=== PATIENT | female | born 1950 | race Caucasian/White ===

== ENCOUNTER → 2017-06-25 | Outpatient (CLI) | payer OTHER ==
--- NOTE | 2017-06-26 15:58 | MAMMOGRAPHY REPORT ---
BILATERAL DIGITAL SCREENING MAMMOGRAM WITH CAD: 06/25/2017 CLINICAL HISTORY: Routine screening. Patient has no complaints. TECHNIQUE: Bilateral CC and MLO views were obtained. Current study was also evaluated with a Compute r Aided Detection (CAD) system. COMPARISON: Comparison is made to exams dated: 06/20/2016 mammogram - [facility], mammogram, 11/27/2013 mammogram, and 08/22/2012 mammogram. BREAST COMPOSITION: The tissue of both breasts is almost entirely fatty. FINDINGS: The parenchymal pattern is unchanged. No developing mass, architectural distortion or clus ter of suspicious microcalcifications is seen in either breast. IMPRESSION: ACR BI-RADS CATEGORY 2: BENIGN There is no mammographic evidence of malignancy. A 1 year screening mammogram is recommended. The pa tient will receive written notification of the results. Approximately 10% of breast cancers are not detected with mammography. A negative mammographic report should not delay biopsy if a clinically suggestive mass is present. April Savage M.D. ay/:06/25/2017 15:49:45 Line Leader: Marquita Carrera RT(R)(M)(BD), [facility] letter sent: Normal 1/2 BI-RADS Code: ACR BI-RADS Category 2: Benign
== END | disposition home or self-care (01) ==
LOC: C.MAMM 11:27
PROVIDERS: ATTEND Obstetrics & Gynecology
DX: Z12.31 Encounter for screening mammogram for malignant neoplasm of breast (principal)

== ENCOUNTER → 2017-10-25 | Outpatient (CLI) | payer OTHER | END | disposition home or self-care (01) | LOC: C.PAPS 15:35 | PROVIDERS: ATTEND Obstetrics & Gynecology | DX: Z12.4 Encounter for screening for malignant neoplasm of cervix (principal) ==

== ENCOUNTER 2024-09-04 06:31 | Observation (INO) ==
--- NOTE | 2024-08-05 13:28 | PAT Medication Instructions ---
Medication Instructions Date of Service August 05, 2024 Home Medications ascorbic acid (vitamin C) 500 mg tablet (Vitamin C) 500 mg PO QAM aspirin 81 mg tablet,delayed release 81 mg PO QAM cholecalciferol (vitamin D3) 50 mcg (2,000 unit) capsule (Vitamin D3) 2,000 unit PO QAM cyanocobalamin (vitamin B-12) 500 mcg tablet (Vitamin B-12) 500 mcg PO QAM multivitamin 1 tab PO QAM zinc 50 mg tablet 50 mg PO QAM escitalopram oxalate 20 mg tablet (Lexapro) 20 mg PO QAM prevagen 1 cap PO QAM albuterol 90 mcg/actuation aerosol inhaler 90 mcg inhalation HS bupropion HCl 300 mg 24 hr tablet, extended release 300 mg PO QAM docusate sodium 100 mg capsule 100 mg PO QAM ferrous sulfate 140 mg (45 mg iron) tablet,extended release 140 mg PO Q2D loratadine 10 mg tablet 10 mg PO QAM meloxicam 15 mg tablet 15 mg PO DAILY PRN Pain naltrexone 50 mg tablet 50 mg PO QAM rosuvastatin 10 mg tablet 10 mg PO HS Continue as directed naltrexone 50 mg tablet 50 mg PO QAM ASK your surgeon for instructions meloxicam 15 mg tablet 15 mg PO DAILY PRN Pain ASK your prescriber and surgeon aspirin 81 mg tablet,delayed release 81 mg PO QAM STOP taking 2 weeks before surgery (or as soon as possible if surgery is within 2 weeks) prevagen 1 cap PO QAM DO NOT take the morning of surgery ascorbic acid (vitamin C) 500 mg tablet (Vitamin C) 500 mg PO QAM cholecalciferol (vitamin D3) 50 mcg (2,000 unit) capsule (Vitamin D3) 2,000 unit PO QAM cyanocobalamin (vitamin B-12) 500 mcg tablet (Vitamin B-12) 500 mcg PO QAM multivitamin 1 tab PO QAM zinc 50 mg tablet 50 mg PO QAM docusate sodium 100 mg capsule 100 mg PO QAM ferrous sulfate 140 mg (45 mg iron) tablet,extended release 140 mg PO Q2D loratadine 10 mg tablet 10 mg PO QAM Take morning of surgery With a small sip of water, OTHERWISE NOTHING TO EAT OR DRINK AFTER MIDNIGHT: escitalopram oxalate 20 mg tablet (Lexapro) 20 mg PO QAM bupropion HCl 300 mg 24 hr tablet, extended release 300 mg PO QAM Take evening before surgery albuterol 90 mcg/actuation aerosol inhaler 90 mcg inhalation HS rosuvastatin 10 mg tablet 10 mg PO HS Other Notes If you have any questions please call us at [phone] or [phone] or [phone] or [phone]
--- NOTE | 2024-08-17 09:32 | Anesthesiology Consultation ---
Date of Service August 17, 2024 Assessment & Plan (1) Encounter for pre-operative examination: Chart Review Chart Review: Acceptable Risk for Surgery and Patient seen in Pre Admission Testing - Patient hesitant about SAB- will discuss with anesthesiologist DOS - Patient is NOT an ideal OPJ candidate (anxious)- currently 23 hour obs Per PAT appt on 08/17/24, no recent illness/disease exposures, illness related symptoms, or recent illness/disease positive tests. Will leave to surgeon's discretion if preop Covid testing needed History Surgery Operation Date: 09/04/24 09:20 Proposed Procedures p Left Total Knee Arthroplasty - Michael Kahn, Height/Weight Height: 5 ft 8 in Weight: 102.1 kg Allergies Allergy/AdvReac Type Severity Reaction Status Date / Time No Known Allergies Allergy Verified 08/05/24 10:16 Medications Home Medications Medication Instructions Recorded Confirmed Last Taken ascorbic acid (vitamin C) 500 mg 500 mg PO QAM 09/12/18 08/05/24 09/22/18 tablet (Vitamin C) aspirin 81 mg tablet,delayed 81 mg PO QAM 09/12/18 08/05/24 09/22/18 release cholecalciferol (vitamin D3) 50 2,000 unit PO QAM 09/12/18 08/05/24 09/22/18 mcg (2,000 unit) capsule (Vitamin D3) cyanocobalamin (vitamin B-12) 500 500 mcg PO QAM 09/12/18 08/05/24 09/22/18 mcg tablet (Vitamin B-12) multivitamin 1 tab PO QAM 09/12/18 08/05/24 09/22/18 zinc 50 mg tablet 50 mg PO QAM 04/19/21 08/05/24 Unknown escitalopram oxalate 20 mg tablet 20 mg PO QAM 02/20/24 08/05/24 Unknown (Lexapro) prevagen 1 cap PO QAM 02/20/24 08/05/24 Unknown albuterol 90 mcg/actuation aerosol 90 mcg inhalation HS 08/05/24 08/05/24 Unknown inhaler bupropion HCl 300 mg 24 hr tablet, 300 mg PO QAM 08/05/24 08/05/24 Unknown extended release docusate sodium 100 mg capsule 100 mg PO QAM 08/05/24 08/05/24 Unknown ferrous sulfate 140 mg (45 mg 140 mg PO Q2D 08/05/24 08/05/24 Unknown iron) tablet,extended release loratadine 10 mg tablet 10 mg PO QAM 08/05/24 08/05/24 Unknown meloxicam 15 mg tablet 15 mg PO DAILY PRN Pain 08/05/24 08/05/24 Unknown naltrexone 50 mg tablet 50 mg PO QAM 08/05/24 08/05/24 Unknown rosuvastatin 10 mg tablet 10 mg PO HS 08/05/24 08/05/24 Unknown Past Medical History Medical History Anemia Improving per patient - takes iron supplement Anxiety Aspiration into airway - Aspiration of pill around 12/2023- s/p interventional pulmonary procedure 03/16/24 at [facility] [place] (dilation of airway, Kenalog injection as well as cryotherapy) - Treated subsequently with Levaquin - Had repeat pulmonary procedure Jul 2024- breathing has been improved Asthma stable Bronchial stenosis, right Per 03/09/[address] - due to aspiration of pill- had scar tissue - improved with most recent dilation of airway 07/2024- follow up with pulm PRN History of melanoma left foot History of retinal vein occlusion Unsure vein or artery - around 2020- follows Dr Recio (eye doctor) - yearly follow up - completed shots 2021 History of thyroid nodule benign Osteoarthritis Exercise / Class Metabolic Activity II 4-5 Yardwork/Stairs/Walk up hill (one flight of stairs - no chest pain or SOB ) Past Family History Family History Mother Family hx of colon cancer, Onset Age: 64 Denies family history of Ovarian cancer Prostate cancer Myocardial infarction Breast cancer Past Surgical History Surgical History (Updated 08/17/24 @ 12:28 by Beth Colvin PA-C) History of adenoidectomy History of amputation of toe Left Foot - Second toe- due to bunion History of appendectomy History of bronchoscopy - x4 since 12/2023 [facility] [place] "They would freeze it, scrape it away and stretch my airway" related to aspiration - most recent procedure Jul 2024 History of cholecystectomy History of colonoscopy (2022) History of dilatation and curettage History of gastric bypass History of melanoma excision left foot History of partial thyroidectomy History of tonsillectomy History of tooth extraction History of total hip arthroplasty right History of vein stripping Past Anesthesia History No Hx of Anesthesia Complications and No Family Hx of Anesthesia Complications History of PONV No Hx of PONV and No Hx of Motion Sickness Social History Smoking Status: Former smoker Do You Dip or Chew Tobacco: No Smoking End Date: around 1989 Hx Alcohol Use: Yes Alcohol type: hard liquor alcohol intake frequency: holidays/special occasions only Hx Substance Use: No substance use type: does not use Review of Systems - Occ cough/wheezing- due to asthma -chronic and stable - Hx of blood transfusion with hip surgery - early Patient denies chest pain, shortness of breath, dyspnea on exertion, reflux, palpitations. No hx of seizures, stroke, CO, apnea/snoring. No hx of blood clots Physical Exam Vital Signs VITALS BP 121/69 P 58 TEMP 98.2 SP02 96% RESP 16 Constitutional no acute distress ENMT Mouth: no TMJ clicking Thyromental Distance: < 3.5 Finger Breadths (3.0) Mallampati Class: III Missing molars Cap to side tooth Neck neck extension not limited Respiratory normal respiratory effort; no respiratory distress Auscultation: lungs clear to auscultation bilaterally; no wheezes Cardiovascular Rate/Rhythm: regular rate and regular rhythm Heart Sounds: no murmur Vessels: no carotid bruit Musculoskeletal Spine: no pain with cervical ROM Extremities: extremities normal to inspection Psychiatric Orientation: alert Lab Results Anesthesia Preop Results Results Anesthesia Widget: WBC 5.98 K/ul (4.8-10.8) 08/17/24 Hgb 13.1 g/dl (12.0-16.0) 08/17/24 Hct 40.7 % (37.0-47.0) 08/17/24 Plt 307 K/uL (130-400) 08/17/24 Na 141 mmol/L (136-145) 08/17/24 K 4.2 mmol/L (3.5-5.1) 08/17/24 Cl 108 mmol/L (98-107) H 08/17/24 CO2 28 mmol/L (21-32) 08/17/24 BUN 13 mg/dl (6-23) 08/17/24 Creat 0.62 mg/dl (0.6-1.2) 08/17/24 Glucose Level 94 mg/dl (70-99(Fasting)) 08/17/24 PT 10.6 Seconds (9.0-12.0) 08/17/24 PTT 27 Seconds (21-31) 08/17/24 INR 1.0 (0.9-1.1) 08/17/24 Blood Type A Positive 08/17/24 Antibody Screen NEGATIVE 08/17/24 Testing Electrocardiogram Date: 08/17/24 Findings: + SB @ (57bpm) Otherwise normal EKG per cardio Chest X-Ray Date: 08/17/24 FINDINGS: PA and lateral chest radiographs are compared to study dated 12/30/2023 and correlated with chest CT dated 03/09/2024. The cardiomediastinal silhouette is unremarkable. There is mild bibasilar scarring/atelectasis. The lungs and pleural spaces are otherwise clear. There is no pneumothorax. The skeletal structures are osteopenic. The bony thorax appears intact. Degenerative change is noted in the spine. Suture material and surgical clips project over the left upper quadrant. IMPRESSION: No active disease in the chest.
--- NOTE | 2024-09-03 06:43 | History & Physical Report ---
Date of Service September 03, 2024 Assessment & Plan (1) Osteoarthritis, knee: We will proceed with a left total knee arthroplasty. Postoperatively she will be started on aspirin for DVT prophylaxis and kept overnight in the hospital for postop medical management. She plans to have the hospital set up home health for discharge. History of Present Illness Chief Complaint: Osteoarthritis of the left knee. Primary Care Provider: Paulina CarmenJay Mathieu Funk is a pleasant 74-year-old female who has been dealing with chronic increasing left knee pain. She has been seeing my partner, Dr. Nieto. X- rays and clinical examination have been diagnostic for advanced arthritis of the left knee. He has been given her multiple injections. Unfortunately, she is still really struggling with the left knee. After failing conservative treatment, she has elected proceed with a left total knee arthroplasty. Allergies Allergy/AdvReac Type Severity Reaction Status Date / Time No Known Allergies Allergy Verified 08/05/24 10:16 Home Medications Medication Instructions Recorded Confirmed Type ascorbic acid (vitamin C) 500 mg 500 mg PO QAM 09/12/18 08/05/24 History tablet (Vitamin C) aspirin 81 mg tablet,delayed 81 mg PO QAM 09/12/18 08/05/24 History release cholecalciferol (vitamin D3) 50 2,000 unit PO QAM 09/12/18 08/05/24 History mcg (2,000 unit) capsule (Vitamin D3) cyanocobalamin (vitamin B-12) 500 500 mcg PO QAM 09/12/18 08/05/24 History mcg tablet (Vitamin B-12) multivitamin 1 tab PO QAM 09/12/18 08/05/24 History zinc 50 mg tablet 50 mg PO QAM 04/19/21 08/05/24 History escitalopram oxalate 20 mg tablet 20 mg PO QAM 02/20/24 08/05/24 History (Lexapro) prevagen 1 cap PO QAM 02/20/24 08/05/24 History albuterol 90 mcg/actuation aerosol 90 mcg inhalation HS 08/05/24 08/05/24 History inhaler bupropion HCl 300 mg 24 hr tablet, 300 mg PO QAM 08/05/24 08/05/24 History extended release docusate sodium 100 mg capsule 100 mg PO QAM 08/05/24 08/05/24 History ferrous sulfate 140 mg (45 mg 140 mg PO Q2D 08/05/24 08/05/24 History iron) tablet,extended release loratadine 10 mg tablet 10 mg PO QAM 08/05/24 08/05/24 History meloxicam 15 mg tablet 15 mg PO DAILY PRN Pain 08/05/24 08/05/24 History naltrexone 50 mg tablet 50 mg PO QAM 08/05/24 08/05/24 History rosuvastatin 10 mg tablet 10 mg PO HS 08/05/24 08/05/24 History Past Med/Surg History Problem List Aspiration into airway 12/2023 Osteoarthritis, knee Encounter for pre-operative examination Medical History History of retinal vein occlusion Unsure vein or artery - around 2020- follows Dr Recoi (eye doctor) - yearly follow up - completed shots 2021 Asthma stable Aspiration into airway - Aspiration of pill around 12/2023- s/p interventional pulmonary procedure 03/16/24 at [facility] [place] (dilation of airway, Kenalog injection as well as cryotherapy) - Treated subsequently with Levaquin - Had repeat pulmonary procedure Jul 2024- breathing has been improved Bronchial stenosis, right Per 03/09/[address] - due to aspiration of pill- had scar tissue - improved with most recent dilation of airway 07/2024- follow up with pulm PRN Osteoarthritis History of thyroid nodule benign History of melanoma left foot Anemia Improving per patient - takes iron supplement Anxiety Surgical History History of amputation of toe Left Foot - Second toe- due to bunion History of bronchoscopy - x4 since 12/2023 [facility] [place] "They would freeze it, scrape it away and stretch my airway" related to aspiration - most recent procedure Jul 2024 History of colonoscopy (2022) History of vein stripping History of tooth extraction History of tonsillectomy History of adenoidectomy History of gastric bypass History of appendectomy History of cholecystectomy History of dilatation and curettage History of total hip arthroplasty right History of partial thyroidectomy History of melanoma excision left foot Family History Mother Family hx of colon cancer, Onset Age: 64 Denies family history of Ovarian cancer Prostate cancer Myocardial infarction Breast cancer Social History Smoking Status: Former smoker Tobacco Type: Cigarettes Smoking End Date: around 1989; Second Hand Exposure: No; Do You Dip or Chew Tobacco: No; Tobacco Cessation Education Requested by Patient: No Hx Alcohol Use: Yes Alcohol type: hard liquor Hx Substance Use: No Preferred Language: Sami Communication Ability: Effective Heel Slicker Required: No Beliefs That Will Affect Care: None Current Living Situation: Spouse Other Information That Helps Us Care for You: No Feels Safe at Home: Yes Safety Concerns: Feels Safe At This Time Assistive Devices: Glasses Review of Systems All systems reviewed & are unremarkable except as noted in HPI & below. Physical Exam On physical exam of the left knee, she has a valgus deformity. She has tenderness palpation of the distal lateral femoral condyle and over the lateral joint line.. Constitutional WD/WN, vitals as above Eyes PERRL, conjunctivae normal, anicteric sclerae ENMT external ear and nose normal, oropharynx normal Neck trachea midline, no thyromegaly Respiratory normal respiratory effort Cardiovascular RRR, no murmur, no edema Gastrointestinal (Abdomen) normal bowel sounds, soft, nontender, no hepatosplenomegaly Psychiatric A+Ox3, euthymic affect Results & Data Results & Data Laboratory Results . Diagnostic Findings X-rays of the left knee show advanced osteoarthritis with joint space narrowing, osteophyte formation, and [id number] articulation. PG Care Time/CCT Total # of Minutes Spent Total Time Spent with Patient: Total time spent is greater than 50% in coordination of care (as documented) at patient's floor/unit and/or counseling patient: Coding Level of Care Code None Diagnoses Osteoarthritis, knee M17.10
[~2024-09-04 06:31] MED LIST: BUPIVACAINE 0.25% PF 30 ML VIAL ONE; BUPIVACAINE 0.5 % 5 MG/1 ML PF 10ML VIAL ONE
[2024-09-04] MEDS ORDERED: MIDAZOLAM HCL 1 MG/ML 2ML VIAL ONE ×2 (06:40→07:25)
[2024-09-04] MEDS ORDERED: fentaNYL citrate PF 100 MCG/2 ML VIAL ONE (06:41)
[2024-09-04] MEDS ORDERED: LIDOCAINE 2% 2 ML VIAL/AMP(20MG/ML) INFIL ONE ×3 (06:44→08:39)
[2024-09-04] MEDS ORDERED: PROPOFOL IV EMULSION 10 MG/ML 20 ML VIAL IV ONE ×6 (06:47→08:29)
--- NOTE | 2024-09-04 06:49 | History & Physical Bridge Note ---
Date of Service September 04, 2024 History & Physical Bridge Note I have examined the patient, reviewed the History & Physical and in the interval since the performance of the History & Physical I have noted the following changes of clinical significance: no changes noted
[2024-09-04] MEDS ORDERED: ATROPINE SULFATE 0.1 MG/ML 10ML SYR IV PRN (07:39)
[2024-09-04] MEDS ORDERED: fentaNYL citrate PF 100 MCG/2 ML VIAL IV PRN (07:39)
[2024-09-04] MEDS ORDERED: ePHEDrine sulfate 50 MG/ML AMP IV PRN (07:39)
[2024-09-04] MEDS ORDERED: ONDANSETRON INJ 2 MG/ML 2 ML VIAL IV PRN ×2 (07:39→09:55)
[2024-09-04] MEDS: LR 500ML BOLUS, THEN 15ML/HR IV SCH (07:41)
[2024-09-04] MEDS: FAMOTIDINE 20 MG TAB PO SCH (07:42)
[2024-09-04] MEDS: ACETAMINOPHEN 500 MG TAB PO SCH (07:42)
[2024-09-04] MEDS: GABAPENTIN 300 MG CAP PO SCH (07:42)
[2024-09-04] MEDS: dexAMETHasone**PF** 10 MG/ML VIAL IV SCH (07:42)
[2024-09-04] MEDS: TRANEXAMIC ACID 1,000 MG **IV Pre-op IV SCH (07:47)
[2024-09-04] MEDS: ceFAZolin 2000MG 2,000 MG/15 ML SYR IV SCH ×2 (08:06→15:33)
[2024-09-04] MEDS ORDERED: KETAMINE HCL 10MG/ML SYR ONE (08:24)
[2024-09-04] MEDS ORDERED: ePHEDrine sulfate 50 MG/5 ML SYR ONE (08:31)
[2024-09-04] MEDS ORDERED: PHENYLEPHRINE 100MCG/ML 5ML SYR ONE (08:47)
[2024-09-04] MEDS: ROPIV 0.5% 246mg, Ketorolac 30mg, EPINEPHrine 0.5mg in NSS INFIL SCH (08:57)
[2024-09-04] MEDS: ORTHO JOINT ANESTHETIC ONE (08:58)
--- NOTE | 2024-09-04 09:21 | Operative Report ---
PG Post Operative Report Pre & Post Diagnosis Operation Date: 09/04/24 08:00 Pre-Op Diagnosis: Osteoarthritis, Left Knee Post-Op Diagnosis: Osteoarthritis, Left Knee I identified the patient and participated in the time-out.: Yes Procedure Operation Date: 09/04/24 08:00 Actual Procedures p Left Total Knee Arthroplasty(Left) - Michael Kahn DO Surgeon Michael Kahn DO Wood Type Finisher Barbara White PA-C Estimated Blood Loss 30 Findings Consistent with Post-Op Diagnosis Specimens Left femoral and tibial bone Description of Procedure Implants used: I used a Charis Persona total knee arthroplasty system with a size 7 standard PS femur, E tibia, 31 oval patella, and a size 14 CPS polyethylene bearing. All components were cemented in place with Biomet cement. [facility] arrived [facility] for the above procedure. She was seen in the preoperative holding area and the operative extremity was identified and signed. She was given a preoperative antibiotic, TXA, a spinal anesthetic and an adductor nerve block. She was taken back to the operating room and laid on the table in supine position. She was given basic sedation. The operative knee was then prepped and draped in sterile fashion. A timeout was done, and the patient and the operative extremity was properly identified. A midline incision was made directly over the patella. Dissection was taken down to the extensor mechanism. A subvastus arthrotomy was used. The medial retinaculum was released and the fat pad was mostly excised. The knee was flexed and the ACL, PCL, and meniscus were removed. A drill was sent down the center of the femoral canal followed by an intramedullary jaydon. Off that jaydon a distal femoral cutting block was placed. 9 mm was resected off the distal femur at 5 of valgus. A posterior referencing AP sizing guide was then placed on the distal femur. The femur measured to be a size 7. 2 drill holes were placed in 3 of external rotation. A 4-in-1 cutting block was then impacted into place. Anterior, posterior, and chamfer cuts were then made. The proximal tibia was then exposed. An external tibial alignment guide was placed. A tibial cut guide was then anchored in place and the proximal tibia was then resected. The posterior aspect of the knee was then opened up and any additional meniscus fragments and osteophytes were removed. The tibia measured to be a size E. The tibial plate was then placed in the appropriate rotation and the tibia was drilled and punched. Trial components were then placed. I used a size 14 CPS polyethylene insert. The knee was brought through a full range of motion and felt to be stable. The peg holes for the femoral component were then drilled. The patella was then everted and 9 mm was resected off the posterior aspect of the patella. The patella measured to be a size 31 oval. 3 peg holes were then drilled. A trial patella was placed. The knee was once again brought through a full range of motion and felt to be stable. Trial components were then removed. The surrounding soft tissues were injected with 100 cc of an orthopedic pain control cocktail. All components were then cemented into place with Biomet cement. The final polyethylene insert was then snapped into place. Once cement was dry the tourniquet was deflated. Hemos tasis was obtained. A dilute betadyne lavage was then done for 3 minutes. The joint was then irrigated with normal saline solution. The subvastus arthrotomy was then closed with #1 Vicryl suture. The skin was closed with 2-0 Vicryl, 3- 0V lock suture, and elham. A soft compressive dressing was placed. She was then transferred to a hospital bed and taken to the postanesthesia care unit in stable condition. She tolerated the procedure well. Barbara White PA-C, was present for the entire procedure. He was critical for patient positioning, prepping, draping, retraction exposure, wound closure and application of sterile dressing. I attest to the content of the Intraoperative Record and any orders documented therein. Any exceptions are noted below.
[2024-09-04] MEDS: TRANEXAMIC ACID 1,000 MG **IV Intra-op IV SCH (09:25)
[2024-09-04] MEDS ORDERED: NALOXONE HCL 0.4 MG/1 ML VIAL/CARP IV PRN (09:55)
[2024-09-04] MEDS ORDERED: HYDROmorphone INJ 0.5 MG/0.5 ML SYR IV PRN (09:55)
[2024-09-04] MEDS ORDERED: bisacodyL 10 MG SUPP PR PRN (09:55)
[2024-09-04] MEDS ORDERED: HYDROmorphone INJ 1 MG/ML SYRINGE IV PRN (09:55)
[2024-09-04] MEDS ORDERED: METOCLOPRAMIDE HCL INJ 5 MG/ML 2 ML VIAL IV PRN (09:55)
[2024-09-04] MEDS ORDERED: MAGNESIUM HYDROXIDE SUSP 30 ML UDC PO PRN (09:55)
[2024-09-04] MEDS ORDERED: MELOXICAM 7.5 MG TAB PO PRN (09:58)
[2024-09-04] MEDS: LR 60ML/HR IV SCH (11:16)
--- NOTE | 2024-09-04 11:17 | XRay Report ---
XR knee LT 1 or 2V routine CLINICAL HISTORY: Postoperative evaluation. COMPARISON: Left knee radiographs June 23, 2024. FINDINGS: Alignment of the total left knee arthroplasty is anatomic. There is no periprosthetic frac ture or unexpected radiopaque foreign body. There are skin elham. IMPRESSION: Expected findings following total left knee arthroplasty. ACT 112: Negative or not required by law. Electronically signed by: Michael Izaguirre M.D. 09/04/2024 11:15 AM
[2024-09-04] MEDS: KETOROLAC TROMETHAMINE 15 MG/ML VIAL IV SCH (11:34)
[2024-09-04] MEDS: FERROUS SULFATE 325 MG TAB PO SCH (12:23)
--- NOTE | 2024-09-04 14:02 | Anesthesiology Progress Note ---
Date of Service September 04, 2024 Anesthesia Post Procedure Vital Signs Vital Signs: Temp Pulse Pulse Resp BP BP Pulse Ox 09/04/24 12:27 36.5 C 70 18 139/80 97 09/04/24 11:30 63 18 119/74 94 09/04/24 11:00 36.5 C 64 18 122/76 96 09/04/24 10:40 36.4 C L 63 14 130/69 92 09/04/24 10:30 64 15 125/66 92 09/04/24 10:20 62 15 116/75 94 09/04/24 10:10 61 14 117/72 99 09/04/24 10:00 36.3 C L 66 18 109/68 97 09/04/24 07:08 36.6 C 60 20 143/69 H 97 O2 Del Method O2 Flow Rate 09/04/24 12:27 Room Air 09/04/24 11:30 Room Air 09/04/24 11:00 Room Air 09/04/24 10:40 Room Air 09/04/24 10:30 Room Air 09/04/24 10:20 Room Air 09/04/24 10:10 Room Air 09/04/24 10:00 Oxymask 12 09/04/24 07:08 Room Air Transfer of Care Handoff Completed per policy Notes Mental Status: alert / awake / arousable Patient Amnestic to Procedure: Yes Nausea / Vomiting: adequately controlled Pain: adequately controlled Airway Patency, RR, SpO2: stable & adequate BP & HR: stable & adequate Hydration State: stable & adequate Neuraxial Anesthesia: was administered and sensory block is resolving Anesthetic Complications: no major complications apparent and Pt Satisfied with anesthetic care
[2024-09-04] MEDS: ACETAMINOPHEN 1,000 MG/100 ML VIAL IV PRN (14:22)
[2024-09-04] MEDS: SENNA 8.6 MG TAB PO SCH (20:48)
[2024-09-04] MEDS: ROSUVASTATIN CALCIUM 10 MG TAB PO SCH (20:50)
[2024-09-04] MEDS ORDERED: DOCUSATE SODIUM 100 MG CAP PO SCH (21:00)
[2024-09-04] MEDS: ALBUTEROL HFA 8 GM INHALER INH SCH (22:00)
[2024-09-05] MEDS: diphenhydrAMINE Capsule 25 MG CAP PO PRN (00:13)
[2024-09-05] MEDS: oxyCODONE HCL IR 5 MG TAB (IMMEDIATE RELEASE) PO PRN (08:00)
[2024-09-05] MEDS: dexAMETHasone 4 MG TAB PO SCH (08:00)
[2024-09-05] MEDS: CHOLECALCIFEROL 25 MCG (1000 UNITS) TAB PO SCH (08:01)
[2024-09-05] MEDS: ASPIRIN 81 MG ECTAB PO SCH (08:01)
[2024-09-05] MEDS: buPROPion XL 300 MG TABCR PO SCH (08:01)
[2024-09-05] MEDS: ASCORBIC ACID 500 MG TAB PO SCH (08:01)
[2024-09-05] MEDS: LORATADINE 10 MG TAB PO SCH (08:02)
[2024-09-05] MEDS: ESCITALOPRAM OXALATE 20 MG TAB PO SCH (08:02)
[2024-09-05] MEDS: ZINC SULFATE 220 MG CAPSULE PO SCH (08:02)
[2024-09-05] MEDS: CYANOCOBALAMIN (B-12) 500 MCG TABLET PO SCH (08:02)
[2024-09-05] MEDS: NALTREXONE HCL 50 MG TAB PO SCH (08:02)
[2024-09-05] MEDS: MULTIVITAMIN TAB PO SCH (08:02)
--- NOTE | 2024-09-05 08:20 | Orthopedic Progress Note ---
Date of Service September 05, 2024 Assessment & Plan (1) Status post left knee replacement: Overall she is doing fairly well. She is not having much pain in the left knee. She will be seen by physical therapy today for ambulation and range of motion exercises. She is on aspirin for DVT prophylaxis. The nursing staff can change her dressing after physical therapy. She can be discharged to home later today. She will follow-up with orthopedics in 2 weeks. Yoandy Funk was seen and examined at bedside this morning. Overall she is doing fairly well. She is not having too much pain in the left knee. She has been up and ambulating to the bathroom. She has no complaints.. Review of Systems All systems reviewed & are unremarkable except as noted in HPI & below. Physical Exam On physical exam of the left knee, the dressing is clean and dry. Her leg is out full extension. She has active dorsiflexion plantarflexion of her left ankle.. Results & Data Results & Data Laboratory Results . Diagnostic Findings Postoperative x-rays of the left knee show the prosthesis to be in anatomic alignment without any evidence of fracture, dislocation, or loosening.. PG Care Time/CCT Total # of Minutes Spent Total Time Spent with Patient: Total time spent is greater than 50% in coordination of care (as documented) at patient's floor/unit and/or counseling patient: Coding Level of Care Code 48170 Post Operative Follow-Up Diagnoses Status post left knee replacement Z96.652
--- NOTE | 2024-09-05 08:21 | Discharge Summary ---
Date of Service September 05, 2024 Admission HPI (Per Admitting) Blessing is a pleasant 74-year-old female who has been dealing with chronic increasing left knee pain. She has been seeing my partner, Dr. Nieto. X- rays and clinical examination have been diagnostic for advanced arthritis of the left knee. He has been given her multiple injections. Unfortunately, she is still really struggling with the left knee. After failing conservative treatment, she has elected proceed with a left total knee arthroplasty. Admission Exam (Per Admitting) On physical exam of the left knee, she has a valgus deformity. She has tenderness palpation of the distal lateral femoral condyle and over the lateral joint line.. Principal Diagnosis Same as "Discharge Diagnosis" noted below under Discharge Instructions. Discharge Exam On physical exam of the left knee, the dressing is clean and dry. Her leg is out full extension. She has active dorsiflexion plantarflexion of her left ankle.. Discharge Data Procedures Performed Operation Date: 09/04/24 08:00 Actual Procedures p Left Total Knee Arthroplasty(Left) - Michael Kahn DO Ordered Studies 09/04/24 05:00 US - OR guided needle placemen Routine Hospital Course (1) Status post left knee replacement: On September 04, 2024 when the arrived at [facility] and underwent a left knee replacement without complication. She had a spinal anesthetic. Postoperatively she was started on aspirin for DVT prophylaxis and transferred to the general orthopedic floors. Her hospital course was uneventful. On postop day #1, her vital signs were stable and her pain was well-controlled. She was able to participate well with physical therapy doing ambulation and range of motion exercises. She was then discharged to home. She will follow-up orthopedics in 2 weeks. PG Care Time/CCT Total # of Minutes Spent Total Time Spent with Patient: Total time spent is greater than 50% in coordination of care (as documented) at patient's floor/unit and/or counseling patient: Discharge Plan Discharge Items Patient Disposition: Home - Self-Care Reason For Visit: S/P LEFT TOTAL KNEE Discharge Diagnosis: Left knee replacement Activity: Per Instructions section Non-emergency contact: Surgeon Call non-emergency contact if: your wound has increased redness and your wound has increased drainage Follow-up/Referrals: Paulina Murdock PA-C [Primary Care Provider] - Diet: Regular Addtl Attending Provider Instructions: Activity and Therapy Recommendations: * If you are using [facility] then therapy will be provided at your home until they feel you have accomplished all of your goals. * If you are using [facility] then Physical Therapy will be provided until they feel you are ready to start Outpatient Physical Therapy. * If you are not using home therapy then Outpatient Physical Therapy should start about 3-5 days from your day of surgery. Therapy will last about 6-10 weeks * It is important not to put a pillow under your knee when you are relaxing or sleeping. It is just as important to make sure you are getting your knee perfectly straight as it is to regain your knee bend. * You were shown a series of exercises in the hospital. Do these exercises three times each day including the exercises you were shown in physical therapy. * Get up and walk several times each day. For the first four weeks, try not to stand or walk for more than one hour at a time. If you do stand or walk for more than one hour, you will not hurt anything, but your leg will likely swell. * As you feel comfortable, you may change from the walker or crutches to a cane and then to independent walking. Medications: * Narcotic You will likely be sent home from the hospital with a prescription for the narcotic pain medication that worked best throughout your stay. * Cefadroxil -take the antibiotic twice a day for 10 days to help prevent infection. * Aspirin Most patients will be required to take Aspirin 81mg twice a day for 6 weeks after surgery. This is obtained [id number] and a prescription is not necessary. * Other medications may be prescribed for specific circumstances. If you have any questions, please call the office at . * Resume previous home medications unless otherwise instructed TEDs/Elastic Stockings: The white elastic stockings help limit swelling and prevent blood clots from forming in your legs.~ The more you wear them, the more they work. Wear them for six weeks. Dressing Care: The dressing can be changed after physical therapy on postop day #1. Daily dry dressing changes for a few days, especially if the incision is still draining some. If the incision is not draining then you may leave the elham open to air. If there is a little bit of drainage or if the elham are getting stuck on your clothing then cover the incision with a dry dressing. The elham will be removed at your 2 week follow-up appointment. Showering: You may shower 5 days from the day of surgery as long as the incision is no longer draining. You may shower with the elham exposed. Let soapy water run over the elham and pat them dry. Do not scrub or soak the incision. Diet: You may resume your previous diet. Things To Watch For: * Drainage from the incision site that occurs more than one week after your surgery. * Increased redness at the incision site. * Fever above 102 degrees Fahrenheit. * Unusual chest pain or shortness of breath. * Call [facility] at with any of the above problems Follow-Up Visit: Follow-up with Dr. Kahn's PA (Michael Centeno) 2-3 weeks after your day of surgery. He will remove your elham and answer any questions. If you have any additional questions or concerns, Dr Kahn is usually in the office at the same time and will be available An appointment was probably scheduled when you signed-up for surgery in the office. If you have any questions call Office Instructions: More detailed instructions as well as Frequently Asked Questions were provided in a folder by our office when you signed-up for surgery. Please review these instructions when you get home. If you have any further questions or concerns, please feel free to call the office at [phone] Pending Studies at Discharge: No Stand-Alone Forms: My [facility] [address], Smoking Cessation Medications and DC Order Prescriptions: New oxycodone 5 mg Tablet 5 mg PO Q4H PRN (Reason: pain) Qty: 30 0RF cefadroxil 500 mg capsule 500 mg PO BID 10 Days Qty: 20 0RF Continued zinc 50 mg tablet 50 mg PO QAM prevagen 1 cap PO QAM multivitamin Tablet 1 tab PO QAM cyanocobalamin (vitamin B-12) [Vitamin B-12] 500 mcg Tablet 500 mcg PO QAM ascorbic acid (vitamin C) [Vitamin C] 500 mg Tablet 500 mg PO QAM cholecalciferol (vitamin D3) [Vitamin D3] 2,000 unit Capsule 2,000 unit PO QAM escitalopram oxalate [Lexapro] 20 mg tablet 20 mg PO QAM meloxicam 15 mg tablet 15 mg PO DAILY PRN (Reason: Pain) naltrexone 50 mg tablet 50 mg PO QAM docusate sodium 100 mg Capsule 100 mg PO QAM albuterol 90 mcg/actuation Aerosol 90 mcg INHALATION HS loratadine 10 mg Tablet 10 mg PO QAM rosuvastatin 10 mg tablet 10 mg PO HS bupropion HCl 300 mg tablet extended release 24 hr 300 mg PO QAM ferrous sulfate 140 mg (45 mg iron) Tablet Extended Release 140 mg PO Q2D Changed aspirin 81 mg Tablet,Delayed Release (Dr/Ec) 81 mg PO BID 42 Days Qty: 0 0RF Discharge Orders: Discharge Order (Routine); Ordered 09/05/24 Ordered By: Michael Kahn Admission Data Admit Date/Time: 09/04/24 09:55 Attending Provider: Micahel Kahn Admit Provider: Michael Kahn Primary Care Provider: Paulina Murdock Other Providers: [facility],Home Healthcare
[2024-09-05] MEDS ORDERED: NON-FORMULARY MEDICATION (Prevagen 1 CAP) PO SCH (09:00)
[2024-09-05] MEDS ORDERED: NON-FORMULARY MEDICATION (Multivitamin Tablet) PO SCH (09:00)
[2024-09-05] MEDS ORDERED: DOCUSATE SODIUM 100 MG CAP PO SCH (09:00)
[2024-09-05 11:37] VITALS: BP 139/79; PULSE 71; RESP 20; TEMP 98.6; O2SAT 95
== END 2024-09-05 14:04 | disposition home or self-care (01) ==
LOC: ASU 06:31 → 3E 06:31